=== PATIENT | female | born 1985 | race African-American/Black ===

== ENCOUNTER 2022-03-22 08:49 | Emergency (ER) | payer OTHER ==
[2022-03-22 09:14] VITALS: BP 128/75; PULSE 71; RESP 20; TEMP 98.6; BMI 47.9
[2022-03-22] MEDS ORDERED: ALBUTEROL SO4 2.5/IPRATROPIUM 0.5 INH SOL 3 ML VIAL.NEB. NEB ONE (09:29)
== END 2022-03-22 13:19 | disposition home or self-care (01) ==
LOC: JER 08:49
PROC: 3E0F7GC Introduction of Other Therapeutic Substance into Respiratory Tract, Via Natural or Artificial Opening (ICD-10-PCS; principal; 2022-03-22)
DX: U07.1 COVID-19 (principal)
CPT/HCPCS: 71046-TC-FY; 99283-25

== ENCOUNTER 2024-05-09 12:54 | Emergency (ER) | payer OTHER ==
[2024-05-09 13:05] VITALS: BP 157/89; PULSE 64; RESP 18; TEMP 98.4; BMI 50.8
[2024-05-09] MEDS ORDERED: KETOROLAC TROMETHAMINE 30 MG/1 ML VIAL ONE (14:06)
[2024-05-09] MEDS ORDERED: METHOCARBAMOL 500 MG TABLET ONE (14:06)
[2024-05-09] MEDS ORDERED: LIDOCAINE 4% PATCH TP ONE (14:06)
[2024-05-09] MEDS: METHOCARBAMOL 750 MG TABLET PO ONE (14:13)
[2024-05-09] MEDS: KETOROLAC TROMETHAMINE 30 MG/1 ML VIAL IM ONE (14:13)
[2024-05-09] MEDS: LIDOCAINE 4% PATCH TP ONE (14:13)
[2024-05-09] MEDS ORDERED: LIDOCAINE PATCH REMOVAL MC SCH (22:00)
== END 2024-05-09 18:11 | disposition home or self-care (01) ==
LOC: JER 12:54 → JERFT 12:54
PROC: 3E0133Z Introduction of Anti-inflammatory into Subcutaneous Tissue, Percutaneous Approach (ICD-10-PCS; principal; 2024-05-09)
DX: M54.16 Radiculopathy, lumbar region (principal); M54.41 Lumbago with sciatica, right side; M54.42 Lumbago with sciatica, left side
CPT/HCPCS: 99284-25

== ENCOUNTER 2024-12-19 17:28 | Emergency (ER) | payer OTHER ==
[2024-12-19 17:43] VITALS: BP 163/88; PULSE 92; RESP 18; TEMP 98.3; BMI 51.7
[2024-12-19] MEDS ORDERED: IBUPROFEN 600 MG TABLET (FP) PO ONE (18:08)
[2024-12-19] MEDS ORDERED: ACETAMINOPHEN 500 MG TABLET (FP) ONE (18:08)
[2024-12-19] MEDS: IBUPROFEN 600 MG TABLET (FP) PO ONE (18:09)
[2024-12-19] MEDS: ACETAMINOPHEN 500 MG TABLET (FP) PO ONE (18:10)
[2024-12-19 19:20] LABS: HCV DIAGNOSTIC IN-HOUSE W/RFLX NON-REACTIVE (NONREACTIVE); HIV INTERPRETATION NEGATIVE (NEGATIVE)
== END 2024-12-19 20:09 | disposition home or self-care (01) ==
LOC: JER 17:28 → JERFT 17:28
DX: S56.911A Strain of unspecified muscles, fascia and tendons at forearm level, right arm, initial encounter (principal); S59.801A Other specified injuries of right elbow, initial encounter; X50.1XXA Overexertion from prolonged static or awkward postures, initial encounter
CPT/HCPCS: 36415; 73070-TC-RT-FY; 86803; 87389; 99284-25

== ENCOUNTER 2025-04-16 06:07 | Day surgery (SDC) | payer OTHER ==
[2025-04-16] MEDS ORDERED: LIDOCAINE HCL/PF 1% SDV 5ML VIAL ONE (07:23)
[2025-04-16] MEDS ORDERED: BUPIVACAINE HCL/PF 0.5% (5MG/ML) 10 ML VIAL ONE (07:23)
[2025-04-16 11:41] VITALS: TEMP 97.5
[2025-04-16] MEDS: LIDOCAINE HCL 1% PRESERVATIVE FREE - 30ML VIAL IJ ONE (12:13)
[2025-04-16] MEDS: IOHEXOL 180 MG/1 ML ML IJ ONE (12:14)
[2025-04-16] MEDS: TRIAMCINOLONE ACET 40MG/1ML VIAL IM ONE (12:15)
[2025-04-16] MEDS: BUPIVACAINE HCL/PF 0.5% (5MG/ML) 10 ML VIAL IJ ONE (12:15)
[2025-04-16 12:36] VITALS: BP 144/70; PULSE 67; RESP 16
== END 2025-04-16 12:57 | disposition home or self-care (01) ==
LOC: JASU-SURG 06:07
PROVIDERS: ATTEND Pain Medicine Pain Medicine
PROC: 3E0U3BZ Introduction of Anesthetic Agent into Joints, Percutaneous Approach (ICD-10-PCS; 2025-04-16)
PROC: 3E0U33Z Introduction of Anti-inflammatory into Joints, Percutaneous Approach (ICD-10-PCS; principal; 2025-04-16 12:30)
DX: M53.3 Sacrococcygeal disorders, not elsewhere classified (principal)
CPT/HCPCS: 76000-TC-FY